=== PATIENT | female | born 1955 | race Caucasian/White ===

== ENCOUNTER → 2021-05-23 | Outpatient (CLI) | payer OTHER ==
[~2021-05-23] MED LIST: LOPRESSOR 225 MG/TAB PO
== END ==
LOC: COL.RAD 10:19
DX: M47.812 Spondylosis without myelopathy or radiculopathy, cervical region (principal); M48.02 Spinal stenosis, cervical region; M25.78 Osteophyte, vertebrae

== ENCOUNTER → 2021-07-16 | Outpatient (CLI) | payer OTHER | LOC: MHCPAIN 13:41 | DX: M54.2 Cervicalgia (principal); M47.812 Spondylosis without myelopathy or radiculopathy, cervical region | CPT/HCPCS: G0463 ==